=== PATIENT | male | born 1990 | race Caucasian/White ===

== ENCOUNTER 2016-11-30 12:24 | Emergency (ER) | payer BC ==
[2016-11-30] MEDS ORDERED: Ondansetron 4 MG/2 ML SDV IVPUSH ONE (12:37)
[2016-11-30] MEDS ORDERED: Sodium Chloride 0.9% 10 ML Syringe FLUSH PRN (12:37)
[2016-11-30] MEDS ORDERED: HYDROmorphone 1 MG/ML Syringe IVPUSH ONE (12:37)
[2016-11-30] MEDS ORDERED: Diphtheria,Pertussis(Acell),Tetanus Vaccine 0.5 ML SDV inactive IM ONE (12:40)
[2016-11-30] MEDS ORDERED: Sodium Chloride 0.9% 10 ML Syringe FLUSH ONE (13:11)
[2016-11-30] MEDS ORDERED: Iopamidol 612 MG/ML 150 ML Bottle IVPUSH ONE (13:11)
--- NOTE | 2016-11-30 13:16 | EDM.PDOC ---
ED HPI LOWER BACK PAIN/INJURY - General Chief Complaint: Back Pain or Injury Stated Complaint: FALL OFF A LADDER Time Seen by Provider: 11/30/16 12:42 Source of Information: Reports: Patient History Limitations: Reports: No limitations - History of Present Illness INITIAL COMMENTS - FREE TEXT/NARRATIVE: Patient presents for evaluation and treatment of injuries sustained from a fall. Patient off a ladder prior to arrival in the ER. Patient is having pain to the left side of his back. He is confused but is orientated to person, date of , place and year. He does not know the month. TRAUMA ALERT minor was called immediately. Patient is reporting worse pain to the back and left lateral chest. is present and witnessed the fall. Estimated fell about one story. He believes he hit his back on the ladder while he fell. He denies any headaches, nausea, vomiting, blurry vision, double vision, neck pain, chest pain , abdominal pain, lightheadedness, dizziness, bloody nose or any missing teeth. Tetanus is up-to-date. - Related Data Allergies/ADRs: Allergies Allergy/AdvReac Type Severity Reaction Status Date / Time No Known Allergies Allergy Verified 11/30/16 12:38 Home Meds: Home Meds Acetaminophen/oxyCODONE [Percocet 325-5 MG] 1 tab PO Q6H PRN #30 tablet [Rx] Past Medical History - Past Surgical History GI Surgical History: Reports: Hernia, inguinal Social & Family History - Tobacco Use Smoking Status *Q: Never Smoker - Caffeine Use Caffeine Use: Reports: Coffee, Soda - Recreational Drug Use Recreational Drug Use: No ED ROS GENERAL - Review of Systems Review Of Systems: See Below HEENT: Denies: Nosebleed, Vision change Respiratory: Denies: Shortness of Breath Cardiovascular: Denies: Chest pain GI/Abdominal: Denies: Abdominal pain, Nausea, Vomiting Musculoskeletal: Reports: neck pain (initally denied any neck pain, reported a "twinge" of pain to the left lateral neck), back pain (left lateral chest and left back) Neurological: Reports: Confusion. Denies: Dizziness, Headache, Numbness, Syncope, Tingling, Difficulty Walking ED EXAM,LOWER BACK PAIN/INJURY - Physical Exam Exam: See Below Exam Limited By: No limitations General Appearance: alert, WD/WN, no apparent distress Eye Exam: bilateral eye: PERRL Ears: normal external exam, normal canal, hearing grossly normal, normal TMs Nose: normal inspection Throat/Mouth: Normal inspection, Normal lips, Normal voice, No airway compromise Head: atraumatic, normocephalic Neck: normal inspection, non-tender, full range of motion Respiratory/Chest: no respiratory distress, lungs clear, normal breath sounds, other (tenderness to the left lateral chest into the left back approximately ribs 9-12) Cardiovascular: normal peripheral pulses, regular rate, rhythm, no murmur GI/Abdominal: normal bowel sounds, soft, non tender Back Exam: normal inspection Extremities: normal inspection Neurological: alert, normal mood/affect, normal dorsiflexion, normal plantar flexion, normal gait, oriented x 3 (orientated to person, , place, year but not month), other (normal finger to nose testing, normal heel to hargrove testing, ) Psychiatric: normal affect, normal mood Skin Exam: Warm, Dry, Erythema (left lateral lower leg abrasion approximately 15cm x 10cm, 2cm laceration to the left lateral malleolus, left back back abrasion approximately 20cm x 20c m) Course - Vital Signs Last Recorded V/S: Last Vital Signs Temp 36.4 C 11/30/16 12:28 Pulse 65 11/30/16 13:57 Resp 18 11/30/16 13:57 BP 132/70 11/30/16 13:57 Pulse Ox 100 11/30/16 13:57 - Orders/Labs/Meds Orders: Active Orders 24 hr Category Date Time Status Peripheral IV Care [RC] . DIRECTED Care 11/30/16 12:37 Active Vaccines to be Administered [RC] PER UNIT ROUTINE Care 11/30/16 12:41 Active Cervical Spine wo Cont [CT] Stat Exams 11/30/16 12:37 Taken Chest Abdomen Pelvis w Cont [CT] Stat Exams 11/30/16 12:38 Taken Head wo Cont [CT] Stat Exams 11/30/16 12:37 Taken Peripheral IV Insertion Adult [OM.PC] Routine Oth 11/30/16 12:37 Ordered Labs: Laboratory Tests 11/30/16 11/30/16 11/30/16 Range/Units 12:47 12:47 13:30 WBC 7.74 (4.23-9.07) K/mm3 RBC 4.80 (4.63-6.08) M/mm3 Hgb 14.2 (13.7-17.5) gm/L Hct 40.8 (40.1-51.0) % MCV 85.0 (79.0-92.2) fl MCH 29.6 (25.7-32.2) pg MCHC 34.8 (32.2-35.5) g/dl RDW Std Deviation 39.9 (35.1-43.9) fL Plt Count 270 (163-337) K/mm3 MPV 9.7 (9.4-12.3) fl Neut % (Auto) 48.1 (34.0-67.9) % Lymph % (Auto) 39.9 (21.8-53.1) % [place] % (Auto) 9.4 (5.3-12.2) % Eos % (Auto) 1.9 (0.8-7.0) Baso % (Auto) 0.4 (0.1-1.2) % Neut # (Auto) 3.72 (1.78-5.38) K/mm3 Lymph # (Auto) 3.09 (1.32-3.57) K/mm3 [place] # (Auto) 0.73 (0.30-0.82) K/mm3 Eos # (Auto) 0.15 (0.04-0.54) K/mm3 Baso # (Auto) 0.03 (0.01-0.08) K/mm3 Sodium 138 (136-145) mEq/L Potassium 3.7 (3.5-5.1) mEq/L Chloride 101 (98-107) mEq/L Carbon Dioxide 26 (21-32) mEq/L Anion Gap 14.7 (5-15) BUN 18 (7-18) mg/dL Creatinine 1.2 (0.7-1.3) mg/dL Est Cr Clr Drug Dosing 106.56 mL/min Estimated GFR (MDRD) > 60 (>60) mL/min BUN/Creatinine Ratio 15.0 (14-18) Glucose 85 (74-106) mg/dL Calcium 9.0 (8.5-10.1) mg/dL Total Bilirubin 0.6 (0.2-1.0) mg/dL AST 39 H (15-37) U/L ALT 46 (16-63) U/L Alkaline Phosphatase 42 L (46-116) U/L Total Protein 7.6 (6.4-8.2) g/dl Albumin 4.5 (3.4-5.0) g/dl Globulin 3.1 gm/dL Albumin/Globulin Ratio 1.5 (1-2) Urine Color Light yellow (Yellow) Urine Appearance Clear (Clear) Urine pH 6.0 (5.0-8.0) Ur Specific [place] 1.010 (1.005-1.030) Urine Protein Negative (Negative) Urine Glucose (UA) Negative (Negative) Urine Ketones Trace H (Negative) Urine Occult Blood Negative (Negative) Urine Nitrite Negative (Negative) Urine Bilirubin Negative (Negative) Urine Urobilinogen 0.2 (0.2-1.0) Ur Leukocyte Esterase Negative (Negative) Meds: Medications Discontinued Medications Generic Name Dose Route Start Last Admin Trade Name Freq PRN Reason Stop Dose Admin Diphtheria/Tetanus/Acell Pertussis 0.5 ml 11/30/16 12:40 11/30/16 14:02 Boostrix IM 11/30/16 12:41 Not Given .ONCE ONE Hydromorphone HCl 0.5 mg 11/30/16 12:37 11/30/16 12:51 Dilaudid IVPUSH 11/30/16 12:38 0.5 mg ONETIME ONE Administration Iopamidol 150 ml 11/30/16 13:11 11/30/16 13:13 Isovue-300 (61%) IVPUSH 11/30/16 13:12 125 ml ONETIME ONE Administration Ondansetron HCl 4 mg 11/30/16 12:37 11/30/16 12:51 Zofran IVPUSH 11/30/16 12:38 4 mg ONETIME ONE Administration Sodium Chloride 10 ml 11/30/16 12:37 11/30/16 12:49 Saline Flush FLUSH 10 ml ASDIRECTED PRN Administration Keep Vein Open Sodium Chloride 10 ml 11/30/16 13:11 11/30/16 13:13 Saline Flush FLUSH 11/30/16 13:12 10 ml ONETIME ONE Administration - Radiology Interpretation Free Text/Narrative:: CT of the head without contrast impression per Vrad: unremarkable study CT of the cervical spine impression per vrad: No acute findings. CT of the abdomen and pelvis impression per Vrad: No abdominal injuries Ct of the chest with contrast impression per Vrad: Left posterior 11th and 12rib fractures (in the findings the ribs are listed as the 10th and 11th ribs) . 11th rib is comminuted and minimally displaced. Very small left pneumothorax. Trace left pleural effusion. Trace left basilar atelectasis. CT Results Date: 11/30/16 - Re-Assessments/Exams Free Text/Narrative Re-Assessment/Exam: 11/30/16 14:02 Labs returned. WBC normal at 7.74, hgb is 14.2 and plts are 270 Sodium is 138, potassium is 3.7 and chlorides is 101. Creatinine is 1.2Glucose is 85. Anion gap is 14.7 UA has trace ketones. No blood. Spoke with Dr. Jeff, surgery pedodontist. Recommend follow-up in one week for an xray. Return to the ER should he experience worsening shortness of breath, chest pain or any other concerning symptom. I reviewed the labs and imaging with the patient. Pain improved, still present with breathing. Will have him follow-up in clinic. Percocet as needed for pain. Discharge instructions as documented. Departure - Departure Time of Disposition: 14:02 Disposition: Home, Self-Care 01 Condition: fair Clinical Impression: Multiple rib fractures, Pleural effusion, Pneumothorax Prescriptions: Acetaminophen/oxyCODONE [Percocet 325-5 MG] 1 tab PO Q6H PRN #30 tablet PRN Reason: Pain Instructions: Rib Fracture, Pneumothorax, Pleural Effusion Referrals: Familia Jeff MD [Physician] - Forms: ED Department Discharge Additional Instructions: You were given medication in the ER that can affect her ability to drive and operate machinery. No driving or operating machinery within 12 hours of taking narcotic pain medication. [id number] ibuprofen as needed for pain relief. may take Percocet one to two tabs every 4-6 hours as needed for severe pain. No driving or operating machinery within 12 hours of taking the Percocet. Percocet can be habit-forming , I recommend you take as few of these as needed to control your pain. Followup with surgery within one week. Recommend Dr. Jeff. Call [phone] to schedule with him. Rest. we recommend that you avoid stimulating activities such as reading, television, computer, texting, etc. This will help prevent post concussive headaches. Wash wounds and abrasions with gentle soap and water. May apply antibacterial ointment. Mnitor for signs of infection and return to the ER or clinic should you develop redness, pus or swelling to your wounds. Please return to the immediately if your symptoms change or worsen. In particular we would like to see you for worsening shortness of breath or worsening chest pain. - My Orders Last 24 Hours: My Active Orders 11/30/16 12:37 Peripheral IV Care [RC] . DIRECTED Cervical Spine wo Cont [CT] Stat Head wo Cont [CT] Stat Peripheral IV Insertion Adult [OM.PC] Routine 11/30/16 12:38 Chest Abdomen Pelvis w Cont [CT] Stat 11/30/16 12:41 Vaccines to be Administered [RC] PER UNIT ROUTINE - Assessment/Plan Last 24 Hours: My Active Orders 11/30/16 12:37 Peripheral IV Care [RC] . DIRECTED Cervical Spine wo Cont [CT] Stat Head wo Cont [CT] Stat Peripheral IV Insertion Adult [OM.PC] Routine 11/30/16 12:38 Chest Abdomen Pelvis w Cont [CT] Stat 11/30/16 12:41 Vaccines to be Administered [RC] PER UNIT ROUTINE
[2016-11-30 13:58] VITALS: BP 132/70
--- NOTE | 2016-12-01 16:49 | CT ---
Head CT Technique: Multiple axial sections through the brain were obtained. Intravenous contrast was not utilized. Comparison: No previous intracranial imaging. Findings: Ventricles along the basal cisterns and sulci over the convexities are within normal limits for the patient's age. No abnormal parenchymal densities are seen. No evidence of intracranial hemorrhage. No midline shift or mass effect is seen. Bone window settings were reviewed which show no discrete calvarial abnormality. Minimal mucosal thickening seen within the left maxillary sinus which is felt to be incidental. No acute calvarial abnormality is seen. Impression: 1. Incidental sinus findings. 2. Nothing acute is identified on noncontrasted CT study. Diagnostic code #2 I agree with preliminary report issued by [facility] (report finalized on 11/30/16, 2:28 PM Central Time)
--- NOTE | 2016-12-01 17:25 | CT ---
CT cervical spine Technique: Multiple axial sections were obtained through the cervical spine. Reconstructed sagittal and coronal images were reviewed. Findings: Minimal disc bulge noted posteriorly at C3-C4 and C4-C5. Vertebral body heights and disc spaces are maintained. No fracture is seen. No bony central or bony neural foraminal stenosis is seen. Visualized mastoid sinuses and middle ear cavities are clear. Posterior skull base is intact. No abnormal subluxation is seen on the reconstructed sagittal images. Impression: 1. Minimal disc bulging which is incidental. 2. Nothing acute is identified on CT study of the cervical spine. Diagnostic code #2 I agree with preliminary report issued by [facility] (report finalized on 11/30/16, 2:38 PM Central Time)
--- NOTE | 2016-12-01 17:25 | CT ---
CT chest Technique: Multiple axial sections through the chest were obtained. Intravenous contrast was utilized. Comparison: No previous chest imaging. Findings: Displaced and slightly comminuted fracture seen within the posterior left 11th rib. There is adjacent parenchymal density within the chest compatible with atelectasis and possible small pleural hematoma. Nondisplaced fracture noted within the left 10th rib. No additional fracture seen within the ribs. Lungs otherwise are clear. Small pneumothorax seen anteriorly within the left lung. Mediastinum and hilar regions show no adenopathy or mass. No pericardial thickening is identified. Minimal atherosclerotic calcification is seen within the thoracic aorta. Small nodule noted within the left thyroid gland believed to be incidental. Impression: 1. Nondisplaced 10th rib fracture and displaced and mildly comminuted left 11th rib fracture. 2. Parenchymal density near the 11th rib fracture compatible with atelectasis as well as probable pleural hematoma. Small left-sided pneumothorax is also seen. 3. No additional abnormality identified on CT study of the chest. Diagnostic code #5 I agree with preliminary report issued by [facility] (report finalized on 11/30/16, 2:33 PM Central Time) CT abdomen and pelvis Technique: Multiple axial sections were obtained from above the dome of the diaphragm inferiorly through the pubic symphysis. Intravenous contrast was utilized. No oral contrast as been given. Delayed images were also obtained through the bladder. Comparison: No previous abdominal imaging. Findings: Liver shows no focal parenchymal abnormality. Spleen appears within normal limits. Adrenal glands showed no nodule. Kidneys show contrast-enhancement without hydronephrosis or mass. Pancreas is within normal limits. Aorta shows no aneurysmal dilatation. No retroperitoneal adenopathy is seen. Appendix is seen which is normal. No pelvic mass or adenopathy is seen. Delayed images show contrast within the bladder. No free fluid or inflammatory change is seen. Bone window settings were reviewed which show no discrete abnormality within the lumbar spine. No discrete pelvic fracture is seen. Impression: 1. Nothing acute is identified on CT study of the abdomen and pelvis. Diagnostic code #1 I agree with preliminary report issued by [facility] (report finalized on 11/30/16, 2:34 PM Central Time)
== END 2016-11-30 14:29 | disposition home or self-care (01) ==
LOC: JD.ED 12:24
DX: S22.42XA Multiple fractures of ribs, left side, initial encounter for closed fracture (principal); W11.XXXA Fall on and from ladder, initial encounter; S27.0XXA Traumatic pneumothorax, initial encounter; J90 Pleural effusion, not elsewhere classified
CPT/HCPCS: 36415; 70450; 71260; 72125; 74177; 80053; 81003; 85025; 96374; 96375; 99284; J1170; J2405; J7050; Q9967; 99285

== ENCOUNTER 2023-07-01 18:02 | Emergency (ER) | payer BC ==
[2023-07-01] MEDS ORDERED: Doxycycline Monohydrate 100 MG Cap PO ONE (21:48)
== END 2023-07-01 22:22 | disposition home or self-care (01) ==
LOC: JD.ED 18:02 → MERGE 18:02 → JD.ED 22:22
DX: S61.212A Laceration without foreign body of right middle finger without damage to nail, initial encounter (principal); S61.214A Laceration without foreign body of right ring finger without damage to nail, initial encounter; W26.8XXA Contact with other sharp object(s), not elsewhere classified, initial encounter
CPT/HCPCS: 73140; 99283; A9270